=== PATIENT | female | born 1945 | race Caucasian/White ===

== ENCOUNTER 2019-10-28 11:39 | Inpatient (IN) | payer OTHER ==
[~2019-10-28] VITALS: Ht 152.4 cm; Wt 65.3 kg
[2019-11-10] MEDS ORDERED: CANDESARTAN-HC1 EACH PO (13:24)
[2019-11-10] MEDS ORDERED: ESCITAL PO (13:25)
[2019-11-10] MEDS ORDERED: TENORMIN25 MG PO (13:25)
[2019-11-10] MEDS ORDERED: CRESTOR5 MG PO (13:26)
[2019-11-10] MEDS ORDERED: VITAMIN D-40010 MCG PO (13:27)
[2019-11-10] MEDS ORDERED: SUPER B-50 COM1 EACH IM (13:29)
[2019-11-14] MEDS ORDERED: GLYCOLAX119 GM (11:28)
[2019-11-14] MEDS ORDERED: ESCITALOPRAM OXA5 MG PO (11:29)
[2019-11-17] MEDS ORDERED: HYOSCYAMINE0.125 M1 SL (12:20)
[2019-11-17] MEDS ORDERED: INTESTINEX680 M1 PO (12:20)
[2019-11-17] MEDS ORDERED: OXYC1TAB9 PO (12:20)
== END 2019-11-17 15:13 | disposition home or self-care (01) | DRG 330 ==
LOC: SURH 11-14 09:15 → O/R 11-14 09:29 → SURH 11-14 09:29
PROVIDERS: ADMIT Surgery; ATTEND Surgery
PROC: 07BC4ZZ Excision of Pelvis Lymphatic, Percutaneous Endoscopic Approach (ICD-10-PCS; 2019-11-14)
PROC: 0DTN4ZZ Resection of Sigmoid Colon, Percutaneous Endoscopic Approach (ICD-10-PCS; principal; 2019-11-14 09:15)
DX: C19 Malignant neoplasm of rectosigmoid junction (principal); N17.8 Other acute kidney failure; K63.5 Polyp of colon; D36.0 Benign neoplasm of lymph nodes; I11.9 Hypertensive heart disease without heart failure; R73.01 Impaired fasting glucose; E55.9 Vitamin D deficiency, unspecified

== ENCOUNTER 2019-12-26 05:45 | Day surgery (SDC) | payer OTHER ==
[~2019-12-26 05:45] MED LIST: CANDESARTAN-HC1 EACH PO; CRESTOR5 MG PO; ESCITAL PO; ESCITALOPRAM OXA5 MG PO; GLYCOLAX119 GM; HYOSCYAMINE0.125 M1 SL; INTESTINEX680 M1 PO; OXYC1TAB9 PO; SUPER B-50 COM1 EACH IM; TENORMIN25 MG PO; VITAMIN D-40010 MCG PO
[2019-12-26] MEDS ORDERED: ULTRACET PO (08:14)
== END 2019-12-26 11:00 | disposition home or self-care (01) ==
LOC: CIR.AMB 05:45 → ADM 10:30 → CIR.AMB 10:30
PROVIDERS: ATTEND Surgery
DX: C19 Malignant neoplasm of rectosigmoid junction (principal); Z20.828 Contact with and (suspected) exposure to other viral communicable diseases
CPT/HCPCS: 36561; C1751

== ENCOUNTER 2020-09-25 05:40 | Day surgery (SDC) | payer OTHER ==
[~2020-09-25 05:40] MED LIST changes: +ULTRACET PO
== END 2020-09-25 09:50 | disposition home or self-care (01) ==
LOC: AMB-ENDOS 05:40
PROVIDERS: ATTEND Surgery
DX: K62.89 Other specified diseases of anus and rectum (principal); Z20.822 Contact with and (suspected) exposure to COVID-19

== ENCOUNTER 2021-10-10 05:35 | Day surgery (SDC) | payer OTHER ==
[~2021-10-10] VITALS: Ht 152.4 cm; Wt 59.0 kg
[~2021-10-10 05:35] MED LIST changes: +PEPCID AC20 MG PO; +PROTONIX40 MG PO
[2021-10-10] MEDS ORDERED: ULTRACET PO (08:32)
== END 2021-10-10 09:30 | disposition home or self-care (01) ==
LOC: CIR.AMB 05:35
PROVIDERS: ATTEND Surgery
DX: D01.2 Carcinoma in situ of rectum (principal); K62.7 Radiation proctitis; K29.01 Acute gastritis with bleeding; Z20.822 Contact with and (suspected) exposure to COVID-19; Z45.2 Encounter for adjustment and management of vascular access device; I10 Essential (primary) hypertension